=== PATIENT | female | born 1945 | race Caucasian/White ===

== ENCOUNTER 2020-01-09 12:54 | Outpatient (CLI) | payer MEDICARE, SELFPAY ==
--- NOTE | 2020-01-09 13:53 | PFTS_ITS ---
Date of Study:01/09/20 Date of Dictation: MECHANICS: Forced vital capacity (FVC) is normal. Forced expiratory volume in one second (FEV1) is normal. FEV1/FVC is normal. FLOW VOLUME LOOP: Normal. LUNG VOLUMES: Total lung capacity (TLC) is normal. Residual volume (RV) is normal. DIFFUSING CAPACITY FOR CARBON MONOXIDE: Normal. INTERPRETATION: The pulmonary function tests are normal. There is no significant postbronchodilator response. Lung volumes are normal. Gas exchange (DLCO) is normal. MTDD
--- NOTE | 2020-01-09 14:43 | PFTS_ITS ---
Date of Study:01/09/20 Date of Dictation: MECHANICS: Forced vital capacity (FVC) is . Forced expiratory volume in one second (FEV1) is . FEV1/FVC is . FLOW VOLUME LOOP: . LUNG VOLUMES: Total lung capacity (TLC) is . Residual volume (RV) is . DIFFUSING CAPACITY FOR CARBON MONOXIDE: . INTERPRETATION: The pulmonary function tests are . mechanics and lung volumes. Gas exchange (DLCO) is . MTDD
== END 2020-01-09 12:55 | disposition home or self-care (01) ==
LOC: RT 13:04
PROVIDERS: PCP Family Medicine; Visit Provider Family Medicine
DX: R06.02 Shortness of breath (principal)
CPT/HCPCS: 94060; 94726; 94729; J7611

== ENCOUNTER 2020-12-01 08:11 | Outpatient (CLI) | payer MEDICARE, SELFPAY ==
--- NOTE | 2020-12-01 08:18 | MM_ITS ---
WS: [id number] BILATERAL SCREENING DIGITAL MAMMOGRAM WITH CAD HISTORY: SCREENING COMPARISON: 06/06/2019 and 05/31/2018 Bilateral CC and MLO views submitted. Computer aided detection analyzed. Breast composition: There are scattered areas of fibroglandular density. No suspicious masses, microc alcifications or architectural distortion. MM/[id number] IMPRESSION: BI-RADS: 1-Negative FOLLOW UP: 1 Year Follow-up
== END 2020-12-01 08:12 | disposition home or self-care (01) ==
LOC: RADSHAW 08:16
PROVIDERS: PCP Family Medicine; Visit Provider Family Medicine
DX: Z12.31 Encounter for screening mammogram for malignant neoplasm of breast (principal)
CPT/HCPCS: 77067

== ENCOUNTER 2021-11-09 12:27 | Outpatient (CLI) | payer MEDICARE, SELFPAY ==
--- NOTE | 2021-11-09 12:35 | XR_ITS ---
WS: [id number] DEXA (DUAL ENERGY X-RAY ABSORPTIOMETRY) Bone mineral density was performed using a [employer] machine. HISTORY: POST MENOPAUSAL COMPARISON: 10/11/2018 Lumbar spine BMD (L1-L4): 0.963 g/cm2 T score: -1.8 Z score: 0.4 Total hip BMD: Left: 0.838 g/cm2. T score: -1.3 Z score: 0.7 Right: 0.726 g/cm2. T score: -2.2 Z score: -0.2 10 year probability of a major osteoporotic fracture is 24%. Compared to the prior study from 10/11/2018. Lumbar spine bone mineral density has increased by 1.2%. Bilateral hips bone mineral density has decreased by 10.3%. XR/XR DEXA axial skeleton* [id number] IMPRESSION: OSTEOPENIA based upon the WHO classification for females. There has been a sign ificant decrease in bone mineral density within the hips since the prior study.
== END 2021-11-09 12:28 | disposition home or self-care (01) ==
LOC: RAD 12:31
PROVIDERS: PCP Family Medicine; Visit Provider Family Medicine
DX: Z78.0 Asymptomatic menopausal state (principal); M85.80 Other specified disorders of bone density and structure, unspecified site
CPT/HCPCS: 77080

== ENCOUNTER 2022-06-17 08:21 | Outpatient (CLI) | payer MEDICARE, SELFPAY ==
--- NOTE | 2022-06-17 08:30 | MM_ITS ---
WS: [id number] Bilateral screening 3D tomosynthesis digital mammogram, 06/17/2022 Clinical Data: SCREENING Comparison: 12/01/2020, 06/06/2019, 05/31/2018, 11/03/2016, 07/20/2015, 09/23/2013, 09/28/2011, 07/19/2010, 09/08/2008, 01/29/2007. Findings: The breast parenchymal pattern shows fibroglandular tissue. No spiculated masses or clustered calcifi cations are seen. There are no secondary signs of carcinoma. There is a mole marker on the left breas t. MM/[place] [id number] Impression: 1. Negative bilateral mammogram unchanged. 2. Recommend annual screening mammograms. BIRADS: 1-Negative FOLLOW UP: 1 Year Follow-up The CAD rechecker was used.
== END 2022-06-17 08:22 | disposition home or self-care (01) ==
LOC: RAD 08:22
PROVIDERS: PCP Family Medicine; Visit Provider Family Medicine
DX: Z12.31 Encounter for screening mammogram for malignant neoplasm of breast (principal)
CPT/HCPCS: 77063; 77067

== ENCOUNTER 2023-04-23 09:28 | Emergency (ER) | payer MEDICARE, SELFPAY ==
[2023-04-23 09:34] VITALS: BP 167/71; PULSE 95; RESP 15; TEMP 37.1; O2SAT 97
--- NOTE | 2023-04-23 10:00 | CTR_ITS ---
PROCEDURE INFORMATION: Exam: CT Head Without Contrast Exam date and time: 04/23/2023 11:01 AM Age: 77 years old Clinical indication: Altered mental status/memory loss; Confusion or disorientation; Additional info: AMS TECHNIQUE: Imaging protocol: Computed tomography of the head without contrast. Radiation optimization: All CT scans at this facility use at least one of these dose optimization techniques: automated exposure control; mA and/or kV adjustment per patient size (includes targeted exams where dose is matched to clinical indication); or iterative reconstruction. REPORTING DATA: Count of CT and Cardiac NM exams in prior 12 months: This patient has received 0 known CTs and 0 known cardiac nuclear medicine studies in the 12 months prior to the current study. COMPARISON: No relevant prior studies available. RADIATION DOSE METRICS: Total DLP (mGy-cm): 983.68 FINDINGS: Brain: Normal. No hemorrhage. Unremarkable white matter. No mass effect. Cerebral ventricles: No ventriculomegaly. Paranasal sinuses: Visualized sinuses are unremarkable. No fluid levels. Mastoid air cells: Visualized mastoid air cells are well aerated. Bones/joints: Unremarkable. No acute fracture. Soft tissues: Unremarkable. CT/CT head wo con* [id number] IMPRESSION: No acute intracranial abnormality.
--- NOTE | 2023-04-23 10:00 | XRR_ITS ---
PROCEDURE INFORMATION: Exam: XR Chest Exam date and time: 04/23/2023 10:51 AM Age: 77 years old Clinical indication: Dyspnea; Additional info: AMS TECHNIQUE: Imaging protocol: Radiologic exam of the chest. Views: 1 view. COMPARISON: No relevant prior studies available. FINDINGS: Lungs: Unremarkable. No consolidation. Pleural spaces: Unremarkable. No pleural effusion. No pneumothorax. Heart/Mediastinum: Unremarkable. No cardiomegaly. Bones/joints: Unremarkable. XR/XR chest 1V portable [id number] IMPRESSION: No acute findings.
--- NOTE | 2023-04-23 10:00 | W.ED.AMS ---
HPI - Altered Mental Status General: Chief Complaint: Altered Mental Status Stated Complaint: confusion Time Seen by Provider: 04/23/23 09:30 History of Present Illness: Yari is a 77-year-old female that presents to the emergency department with her . She lives and denies any complaints. Patient's states this has been building for about a month. She has history of bipolar disorder that she takes doxepin and Lexapro for. Patient has been intermittently taking them for the last month but believes that she is no longer taking any of her medications. Her other medications include levothyroxine, calcium, B complex and vitamin E. In the emergency department the patient is oriented to herself, day and year, and her situation although it is difficult to have a conversation with her. She has tangent of thoughts She is calm and cooperative. She becomes tearful during our conversation on 2 occasions. Based on her medication list she has discontinued use of doxepin, Lexapro, levothyroxine as well as multivitamins and vaginal estrogen. She has no history of stroke, VTE, AMI, high blood pressure, hyperlipidemia Review of Systems General: Reports: 10 or more systems reviewed and unremarkable except in HPI and below Const: Denies: fever(s), chills, change in appetite, change in weight, fatigue or malaise Eyes: Denies: change in vision, eye discomfort, eye discharge or eye redness ENMT: Denies: throat pain, enlarged tonsils, odynophagia, hoarseness, ear or mastoid pain, ear discharge, change in hearing, tinnitus, nasal discharge, nasal congestion, post nasal drip or sinus pain Card: Denies: chest pain, palpitations, irregular heart rhythm, edema, dyspnea on exertion, orthopnea or leg pain with exertion Resp: Denies: dyspnea, productive cough, non-productive cough, wheezing, stridor or chest congestion GI: Denies: abdominal pain, nausea, vomiting, dysphagia, diarrhea, constipation, bloating, GI cramping or hematochezia : Denies: flank pain, difficulty voiding, dysuria, urinary frequency, urinary urgency, urinary hesitancy, oliguria or hematuria Musc: Denies: neck pain, back pain, extremity pain, joint pain, joint swelling, joint redness, joint warmth or muscle weakness Skin/Breast: Denies: rash, pruritus, erythema, photosensitivity or new lesions Neuro: Reports: behavioral changes and difficulty communicating thoughts; Denies: headache(s), numbness in extremities, weakness in extremities, sensory changes, lack of coordination, difficulty walking, frequent falls, dizziness, confusion, Slurred speech present, seizure-like activity or involuntary movements Psych: Reports: mood swings, sleeping less, change in appetite and difficulty concentrating Endo: Denies: polyuria, polydipsia or tired all the time Micah/Lymph: Denies: easy bruising or easy bleeding PFS ED PFSH: Medical History (Updated 04/23/23 @ 12:45 by MALIK Garrido) Hypothyroidism Diagnosed in her 30s and symptoms are well controlled with medication managed by her primary care provider. She does not have an workers' compensation mediator. No pertinent past medical history Denies history of: diabetes, heart, liver, lung, kidney problems, DVT/PE, bleeding or clotting disorders. PCP: Dr. Renu Martines Surgical History History of left salpingo-oophorectomy Laparoscopic left salpingo-oophorectomy done in 1999 for a cyst. This was done in [place]. Patient was told that there was no malignancy. S/P tonsillectomy as a child Family History Grandmother Heart disease maternal Mother Hyperlipidemia Brother Hyperlipidemia Grandfather Stroke paternal Sister Thyroid condition x 2 Denies family history of Cervical cancer Colon cancer Ovarian cancer Diabetes DVT (deep venous thrombosis) Breast cancer Pulmonary embolism Hypertension Uterine cancer Physical Exam Const: COMMON NORMALS: no acute distress, average body habitus, patient oriented x3 and healthy appearing EXAM LIMITATIONS: altered mental status and behavioral limitations GENERAL APPEARANCE: cooperative, comfortable and well kempt; not ill appearing and not frail appearing ORIENTATION/CONSCIOUSNESS: Yes awake, Yes oriented to person, Yes oriented to place, Yes oriented to time and Yes Other orientation findings (Tangential thoughts and speech) HENMT: COMMON NORMALS: normocephalic, atraumatic, hearing grossly normal bilaterally and moist oral mucous membranes HEAD & SCALP: normocephalic and atraumatic Eye: COMMON NORMALS: Equal, round and reactive pupils present and EOMs intact bilaterally PUPIL: Yes Equal, round and reactive pupils present Neck/C-Spine: COMMON NORMALS: full ROM, no meningeal signs and no JVD Resp: COMMON NORMALS: normal respiratory effort, No use of accessory muscles and clear to auscultation bilaterally AUSCULTATION: clear to auscultation bilaterally Cardio: COMMON NORMALS: no JVD, regular rate and regular rhythm RATE: regular rate RHYTHM: regular rhythm GI: COMMON NORMALS: Normal to inspection, nondistended, normoactive bowel sounds present Neuro: COMMON NORMALS: patient oriented x3 SENSORIUM/ORIENTATION: Yes oriented to person, Yes oriented to place and Yes oriented to time MENINGEAL SIGNS: Yes no meningeal signs CRANIAL NERVES: Yes CN normal except as noted COORDINATION/BALANCE: [id number]-[id number] test normal and sfuk-[id number] test normal GAIT: Yes Normal gait present COORDINATION: [id number]-[id number] test normal and tjag-ob-ulys test normal Psych: APPEARANCE: Yes grossly normal and Yes well kempt ATTITUDE: Yes calm and Yes engaged ACTIVITY/MOTOR BEHAVIOR: Yes appropriate eye contact, Yes disorganized behavior and Yes mannerisms SPEECH: Yes excessive and Yes Other speech symptoms (Tangential speech) Course Vital Signs: Vital signs: Vital Signs Temperature 98.8 F 04/23/23 09:34 Pulse Rate 95 04/23/23 09:34 Respiratory Rate 15 04/23/23 09:34 Blood Pressure 167/71 04/23/23 09:34 Pulse Oximetry 97 04/23/23 09:34 Oxygen Delivery Me thod Room Air 04/23/23 09:34 MDM - Altered Mental Status Medical Decision Making Patient is a 77-year-old female that presents with her . They have concerns of altered mentation due to discontinuation of her antidepressants. Patient arrives with tangential thought processes but is pleasant and redirectable. Patient states she has been taking her medications but states he knows that she is not. He is not acutely confused and easily gets off topic. She is alert to herself, her birthday, the date and year, location and why she is here. Differential diagnosis includes stroke, infection, toxin, electrolyte abnormality, renal failure, liver failure, and UTI. I did obtain laboratory studies to assess TSH, CBC, CMP, urinalysis, and tox screen. No acute abnormalities were identified. CT of the head was unremarkable EKG reveals sinus rhythm with a ventricular rate of 74 beats a minute and a QTc of 438. Chest x-ray unremarkable. I did speak with my attending dr godinez and reviewed findings. Since the patient is not a risk to herself or others and is willing to be compliant with managing her medications, we gave them the option to be admitted or discharged home. After a lengthy discussion between patient and her spouse, they did have questions regarding length of hospitalization and what could be expected. Unfortunately we do not have those answers. Ultimately, they have elected to discharge home. Yari has follow-up with Dr. Sears in the morning and they plan on keeping that appointment to discuss further At this time no further diagnostics are warranted Patient will discharge home and will follow up with PCP as planned. All questions answered. Lab Data 04/23/23 09:42 04/23/23 09:42 Radiology Impressions Chest X-Ray 04/23/23 10:00 IMPRESSION: No acute findings. Head CT 04/23/23 10:00 IMPRESSION: No acute intracranial abnormality. Laboratory Results WBC 5.31 10^3/uL (3.29-11.43) 04/23/23 09:42 RBC 4.04 10^6/uL (3.85-5.65) 04/23/23 09:42 Hgb 12.80 g/dL (11.27-16.99) 04/23/23 09:42 Hct 37.6 % (36-47) 04/23/23 09:42 MCV 93.1 fl (85-98) 04/23/23 09:42 MCH 31.7 pg (27-33) 04/23/23 09:42 MCHC 34.0 g/dL (30-55) 04/23/23 09:42 RDW 12.0 % (12.1-15.1) L 04/23/23 09:42 Plt Count 289 10^3/cmm (157-399) 04/23/23 09:42 MPV 9.7 fL (7.4-10.4) 04/23/23 09:42 Neut % (Auto) 57.1 % 04/23/23 09:42 Lymph % (Auto) 29.2 % 04/23/23 09:42 [place] % (Auto) 8.3 % 04/23/23 09:42 Eos % (Auto) 4.3 % 04/23/23 09:42 Baso % (Auto) 0.9 % 04/23/23 09:42 Neut # (Auto) 3.03 10^3/uL (1.8-7.7) 04/23/23 09:42 Lymph # (Auto) 1.6 10^3/uL (0.8-4.8) 04/23/23 09:42 [place] # (Auto) 0.4 10^3/uL (0.2-0.9) 04/23/23 09:42 Eos # (Auto) 0.2 10^3/uL (0.0-0.8) 04/23/23 09:42 Baso # (Auto) 0.1 10^3/uL (0.0-0.1) 04/23/23 09:42 Nucleated RBC % (auto) 0 % 04/23/23 09:42 Nucleated RBCs # 0.0 /100WBC 04/23/23 09:42 Sodium 134 mmol/L (136-145) L 04/23/23 09:42 Potassium 3.9 mmol/L (3.5-5.1) 04/23/23 09:42 Chloride 97 mmol/L (98-107) L 04/23/23 09:42 Carbon Dioxide 23 mmol/L (22-29) 04/23/23 09:42 Anion Gap 17.9 (5-19) 04/23/23 09:42 BUN 9 mg/dL (8-23) 04/23/23 09:42 Creatinine 0.8 mg/dL (0.5-0.9) 04/23/23 09:42 GFR Calculation Not Reportable 04/23/23 09:42 Glucose 164 mg/dL (65-115) H 04/23/23 09:42 Calculated Osmolality 280 mOsm/kg (285-295) L 04/23/23 09:42 Calcium 9.3 mg/dL (8.5-10.5) 04/23/23 09:42 Total Bilirubin 0.4 mg/dL (0.15-1.2) 04/23/23 09:42 AST 28 U/L (0-32) 04/23/23 09:42 ALT 18 U/L (0-33) 04/23/23 09:42 Alkaline Phosphatase 101 U/L (35-105) 09/10/23 09:42 Troponin T Gen 5 ng/L 9 ng/L (0-10) 04/23/23 09:42 Total Protein 7.6 g/dL (6.6-8.7) 04/23/23 09:42 Albumin 5.3 g/dL (3.5-5.2) H 04/23/23 09:42 Globulin 2.3 g/dL (1.3-4.6) 04/23/23 09:42 TSH 3.09 uIU/mL (0.27-4.20) 04/23/23 09:42 Urine Color Straw (Yellow) 04/23/23 10:27 Urine Appearance Clear (CLEAR) 04/23/23 10:27 Urine pH 8 (5-7) H 04/23/23 10:27 Ur Specific [place] 1.010 (1.005-1.030) 04/23/23 10:27 Urine Protein Neg (Negative) 04/23/23 10:27 Urine Glucose (UA) Norm (Normal) 04/23/23 10:27 Urine Ketones Negative (Negative) 04/23/23 10:27 Urine Blood Neg (Negative) 04/23/23 10:27 Urine Nitrate Negative (Negative) 04/23/23 10:27 Urine Bilirubin Neg (Negative) 04/23/23 10:27 Prot Sulfosalicylic Acd Negative (Negative) 04/23/23 10:27 Urine Urobilinogen Norm mg/dL (Negative) 04/23/23 10:27 Ur Leukocyte Esterase Negative (Negative) 04/23/23 10:27 Salicylates < 0.3 mg/dL (3-10) L 04/23/23 09:42 Urine Opiates Screen Negative ng/mL (Negative) 04/23/23 10:27 Acetaminophen < 5.0 ug/mL (10-30) L 04/23/23 09:42 Ur Barbiturates Screen Negative ng/mL (Negative) 04/23/23 10:27 Ur Phencyclidine Scrn Negative ng/mL (Negative) 04/23/23 10:27 Ur Amphetamines Screen Negative ng/mL (Negative) 04/23/23 10:27 U Benzodiazepines Scrn Negative ng/mL (Negative) 04/23/23 10:27 Urine Cocaine Screen Negative ng/mL (Negative) 04/23/23 10:27 U Marijuana (THC) Screen Negative ng/mL (Negative) 04/23/23 10:27 Ethyl Alcohol < 10 mg/dL (0-10) 04/23/23 09:42 Discharge Plan Discharge Patient Disposition: Home Clinical Impression: Bipolar 1 disorder, manic, mild Condition: Stable Prescriptions: No Action levothyroxine [Synthroid] 50 mcg tablet 50 mcg PO DAILY Complete Multivitamin Tablet 1 tab PO DAILY vitamin E (dl, acetate) 400 unit PO DAILY glucosamine-chondroitin 900 mg tablet 900 mg PO DAILY B-complex with vitamin C Tablet 1 tab PO DAILY doxepin 6 mg PO BEDTIME escitalopram oxalate 10 mg PO DAILY calcium carbonate [Calcium 600] 600 mg calcium (1,500 mg) tablet 300 mg PO BID estradiol 0.01 % (0.1 mg/gram) cream 1 g vaginal .twice weekly Discharge Orders: Discharge ED (Routine); Ordered 04/23/23 Ordered By: Herber Mcmahon Referrals: Lou Sears MD [Primary Care Provider] - Discharge Diet: Advance as tolerated Discharge Activity: Resume usual activity Patient Instructions: Bipolar Disorder (ED), Pain Management Activity Restrictions/Additional Instructions: Please keep your follow-up appointment with Dr. Sears You have agreed for your to manage her medications. Please take all medications as prescribed Please return to the emergency department for new concerning or worsening symptoms Coding Level of Care Code ED Transmitter Supervisor for Sarah Thompson
--- NOTE | 2023-04-23 10:02 | ECG_ITS ---
[facility] Test Date: 2023-04-23 Pat Name: Yari Hager Department: Room: Gender: Female Press Box Custodian: : 1945 Requested By: Herber cMdonald Order Number: [id number] Reading MD: Jeremy Jamil M.D. Measurements Intervals [place] Rate: 74 P: 62 LA: 191 QRS: -44 QRSD: 87 T: 58 QT: 411 QTc: 456 Interpretive Statements SINUS RHYTHM LEFT AXIS DEVIATION [QRS AXIS < -30] No previous ECG available for comparison Electronically Signed On 04-23-2023 10:55:34 CDT by Jeremy Jamil M.D. [email or web address]
[2023-04-23] MEDS: sodium chloride 0.9% 500 ML IV (10:08)
[2023-04-23 10:16] LABS: Basophils # 0.1 10^3/uL (0.0-0.1); Basophils % 0.9 %; Eosinophils # 0.2 10^3/uL (0.0-0.8); Eosinophils % 4.3 %; Hematocrit 37.6 % (36-47); Lymphocytes # 1.6 10^3/uL (0.8-4.8); Lymphocytes % 29.2 %; Mean Corpuscular Hemoglobin 31.7 pg (27-33); Mean Corpuscular Volume 93.1 fl (85-98); Mean Platelet Volume 9.7 fL (7.4-10.4); Monocytes # 0.4 10^3/uL (0.2-0.9); Monocytes % 8.3 %; Neutrophils # 3.03 10^3/uL (1.8-7.7); Neutrophils % 57.1 %; Nucleated Red Blood Cells % 0 %; Platelet Count 289 10^3/cmm (157-399); Red Blood Count 4.04 10^6/uL (3.85-5.65); White Blood Count 5.31 10^3/uL (3.29-11.43)
[2023-04-23 11:00] LABS: Add Urine Microscopic? NO; Charge for UA Resulting for Rev
[2023-04-23 11:02] LABS: Troponin T (5th) Once 9 ng/L (0-10)
[2023-04-23 11:07] LABS: Bilirubin Urine Neg (Negative); Blood Urine Neg (Negative); Glucose Urine UA Norm (Normal); Ketones Urine Negative (Negative); Leukocyte Esterase Urine Negative (Negative); Nitrate Urine Negative (Negative); Protein Urine Neg (Negative); Sulfosalicylic Acid Urine Negative (Negative); Urine Appearance Clear (CLEAR); Urine Color Straw (Yellow); Urobilinogen Urine Norm (Negative); pH Urine 8 (5-7)
[2023-04-23 11:13] LABS: Alanine Aminotransferase 18 U/L (0-33); Albumin Level 5.3 g/dL (3.5-5.2); Alkaline Phosphatase 101 U/L (35-105); Anion Gap 17.9 (5-19); Aspartate Amino Transferase 28 U/L (0-32); Blood Urea Nitrogen 9 mg/dL (8-23); Calcium 9.3 mg/dL (8.5-10.5); Carbon Dioxide 23 mmol/L (22-29); Chloride 97 mmol/L (98-107); Globulin 2.3 g/dL (1.3-4.6); Glucose 164 mg/dL (65-115); Osmolality Calculated 280 mOsm/kg (285-295); Potassium 3.9 mmol/L (3.5-5.1); Sodium 134 mmol/L (136-145); Thyroid Stimulating Hormone 3.09 uIU/mL (0.27-4.20); Total Bilirubin 0.4 mg/dL (0.15-1.2); Total Protein 7.6 g/dL (6.6-8.7)
[2023-04-23 11:15] LABS: Amphetamines Screen Urine Negative (Negative); Barbiturates Screen Urine Negative (Negative); Benzodiazepines Screen Urine Negative (Negative); Cocaine Screen Urine Negative (Negative); Opiate Screen Urine Negative (Negative); PCP Screen Urine Negative (Negative); THC Screen Urine Negative (Negative)
[2023-04-23 11:15] LABS: Acetaminophen < 5.0 ug/mL (10-30); Alcohol Level < 10 mg/dL (0-10); Salicylate < 0.3 mg/dL (3-10)
== END 2023-04-23 13:11 | disposition home or self-care (01) ==
PROVIDERS: Emergency Provider Nurse Practitioner; PCP Family Medicine
DX: F30.11 Manic episode without psychotic symptoms, mild (principal)
CPT/HCPCS: 70450; 71045; 80053; 80306; 80307; 81003; 84443; 84484; 85025; 93005; 96360; 99285; J7040

== ENCOUNTER 2023-04-28 19:23 | Emergency (ER) | payer MEDICARE, SELFPAY ==
[2023-04-28 19:29] VITALS: BP 162/78; PULSE 86; RESP 16; TEMP 36.5; O2SAT 99; BMI 24.0
--- NOTE | 2023-04-28 19:55 | ED.C_ITS ---
HPI - Psych General: Chief Complaint: Psychiatric Symptoms Stated Complaint: mood changes Time Seen by Provider: 04/28/23 19:46 History of Present Illness: 77-year-old female with history of bipolar disorder was brought into the emergency room by because of unstable mood within the past few weeks. Patient was seen and evaluated for similar complaint few days ago but she did not want to be admitted. According to the patient is having abnormal speech and thinking. Patient denies any suicidal homicidal ideation. Patient is currently on bisoprolol and Seroquel but unsure if patient is taking medication as directed. Patient has any hallucination, headache, blurry vision or change in vision. Associated symptoms: Deny auditory hallucinations, homicidal ideation or suicidal ideation Review of Systems General: Reports: 10 or more systems reviewed and unremarkable except in HPI and below Const: Denies: fever(s), chills or body aches Eyes: Denies: change in vision, blurry vision, blind spots, eye discomfort, eye discharge or dry eyes Resp: Denies: dyspnea, wheezing, stridor, pain on inspiration, hemoptysis or chest congestion Skin/Breast: Denies: rash, pruritus or erythema Neuro: Denies: headache(s), numbness in extremities, weakness in extremities, sensory changes, lack of coordination, difficulty walking, frequent falls, dizziness, vertigo or confusion Psych: Reports: anxiety and irritability; Denies: panic attacks, hopelessness, paranoia, difficulty concentrating, auditory hallucinations, tactile hallucinations, suicidal ideation or homicidal ideation Endo: Denies: polyuria, polydipsia, tired all the time, excessive sweating, heat intolerance or deepening of the voice [facility] ED PFSH: Medical History (Updated 04/28/23 @ 22:07 by Vane Win MD) Hypothyroidism Diagnosed in her 30s and symptoms are well controlled with medication managed by her primary care provider. She does not have an logistics associate. No pertinent past medical history Denies history of: diabetes, heart, liver, lung, kidney problems, DVT/PE, bleeding or clotting disorders. PCP: Dr. Sears [facility] Surgical History History of left salpingo-oophorectomy Laparoscopic left salpingo-oophorectomy done in 1999 for a cyst. This was done in [place]. Patient was told that there was no malignancy. S/P tonsillectomy as a child Family History Grandmother Heart disease maternal Mother Hyperlipidemia Brother Hyperlipidemia Grandfather Stroke paternal Sister Thyroid condition x 2 Denies family history of Cervical cancer Colon cancer Ovarian cancer Diabetes DVT (deep venous thrombosis) Breast cancer Pulmonary embolism Hypertension Uterine cancer Physical Exam Const: COMMON NORMALS: no acute distress, average body habitus, patient oriented x3, no limitations, healthy appearing, alert and well nourished GENERAL APPEARANCE: well kempt Neuro: COMMON NORMALS: patient oriented x3 SENSORIUM/ORIENTATION: Yes alert Psych: APPEARANCE: Yes grossly normal and Yes well kempt ATTITUDE: Yes calm, No bizarre, No uncooperative, No Guarded attititude/behavior present, No Belligerent attititude/behavior present, No agitated, No aggressive and No hostile ACTIVITY/MOTOR BEHAVIOR: Yes appropriate eye contact SPEECH: No delayed, No Pressured speech present and No slurred MOOD & AFFECT: Yes Flat affect present THOUGHT PROCESS: Loose association thought process present and Tangential thought process present THOUGHT CONTENT: No Suicidality present, No Homicidality present, No Hallucination(s) present, Yes Derealization present and No Obsession(s) present ATTENTION/CONCENTRATION: Yes attention grossly in tact MEMORY/COGNITION: Yes memory grossly intact INSIGHT: Fair insight present (Psych) Course Vital Signs: Vital signs: Vital Signs Temperature 97.7 F 04/28/23 19:29 Pulse Rate 85 04/29/23 02:35 Respiratory Rate 16 04/29/23 02:35 Blood Pressure 133/72 04/29/23 02:35 Pulse Oximetry 95 04/29/23 02:35 Oxygen Delivery Me thod Room Air 04/29/23 02:35 MDM - Psych Medical Decision Making Patient made comfortable emergency room. Patient extensive work-up done including CBC, CMP, TSH and a UA. UDS. Discussed patient with Dr. Sellers the psychiatrist and [facility]. Discussed the plan and disposition with and he agreed to current plan. Lab Data 04/28/23 20:09 04/28/23 20:09 Laboratory Results WBC 4.86 10^3/uL (3.29-11.43) 04/28/23 20:09 RBC 3.73 10^6/uL (3.85-5.65) L 04/28/23 20:09 Hgb 11.50 g/dL (11.27-16.99) 04/28/23 20:09 Hct 35.0 % (36-47) L 04/28/23 20:09 MCV 93.8 fl (85-98) 04/28/23 20:09 MCH 30.8 pg (27-33) 04/28/23 20: MCHC 32.9 g/dL (30-55) 04/28/23 20:09 RDW 12.0 % (12.1-15.1) L 04/28/23 20:09 Plt Count 252 10^3/cmm (157-399) 04/28/23 20:09 MPV 9.3 fL (7.4-10.4) 04/28/23 20:09 Neut % (Auto) 53.8 % 04/28/23 20:09 Lymph % (Auto) 31.9 % 04/28/23 20:09 [place] % (Auto) 8.8 % 04/28/23 20:09 Eos % (Auto) 4.5 % 04/28/23 20:09 Baso % (Auto) 0.8 % 04/28/23 20:09 Neut # (Auto) 2.61 10^3/uL (1.8-7.7) 04/28/23 20:09 Lymph # (Auto) 1.6 10^3/uL (0.8-4.8) 04/28/23 20:09 [place] # (Auto) 0.4 10^3/uL (0.2-0.9) 04/28/23 20:09 Eos # (Auto) 0.2 10^3/uL (0.0-0.8) 04/28/23 20:09 Baso # (Auto) 0.0 10^3/uL (0.0-0.1) 04/28/23 20:09 Nucleated RBC % (auto) 0 % 04/28/23 20:09 Nucleated RBCs # 0.0 /100WBC 04/28/23 20:09 Sodium 136 mmol/L (136-145) 04/28/23 20:09 Potassium 3.3 mmol/L (3.5-5.1) L 04/28/23 20:09 Chloride 100 mmol/L (98-107) 04/28/23 20:09 Carbon Dioxide 26 mmol/L (22-29) 04/28/23 20:09 Anion Gap 13.3 (5-19) 04/28/23 20:09 BUN 11 mg/dL (8-23) 04/28/23 20:09 Creatinine 0.7 mg/dL (0.5-0.9) 04/28/23 20:09 GFR Calculation Not Reportable 04/28/23 20:09 Glucose 96 mg/dL (65-115) 04/28/23 20:09 Calculated Osmolality 281 mOsm/kg (285-295) L 04/28/23 20:09 Calcium 9.0 mg/dL (8.5-10.5) 04/28/23 20:09 Total Bilirubin 0.2 mg/dL (0.15-1.2) 04/28/23 20:09 AST 21 U/L (0-32) 04/28/23 20:09 ALT 15 U/L (0-33) 04/28/23 20:09 Alkaline Phosphatase 96 U/L (35-105) 04/28/23 20:09 Total Protein 7.2 g/dL (6.6-8.7) 04/28/23 20:09 Albumin 4.6 g/dL (3.5-5.2) 04/28/23 20:09 Globulin 2.6 g/dL (1.3-4.6) 04/28/23 20:09 TSH 4.16 uIU/mL (0.27-4.20) 04/28/23 20:09 Urine Color Yellow (Yellow) 04/28/23 20:50 Urine Appearance Clear (CLEAR) 04/28/23 20:50 Urine pH 7 (5-7) 04/28/23 20:50 Ur Specific [place] 1.005 (1.005-1.030) 04/28/23 20:50 Urine Protein Neg (Negative) 04/28/23 20:50 Urine Glucose (UA) Norm (Normal) 04/28/23 20:50 Urine Ketones Negative (Negative) 04/28/23 20:50 Urine Blood Neg (Negative) 04/28/23 20:50 Urine Nitrate Negative (Negative) 04/28/23 20:50 Urine Bilirubin Neg (Negative) 04/28/23 20:50 Urine Urobilinogen Norm mg/dL (Negative) 04/28/23 20:50 Ur Leukocyte Esterase Negative (Negative) 04/28/23 20:50 Urine Opiates Screen Negative ng/mL (Negative) 04/28/23 20:50 Ur Barbiturates Screen Negative ng/mL (Negative) 04/28/23 20:50 Ur Phencyclidine Scrn Negative ng/mL (Negative) 04/28/23 20:50 Ur Amphetamines Screen Negative ng/mL (Negative) 04/28/23 20:50 U Benzodiazepines Scrn Negative ng/mL (Negative) 04/28/23 20:50 Urine Cocaine Screen Negative ng/mL (Negative) 04/28/23 20:50 U Marijuana (THC) Screen Negative ng/mL (Negative) 04/28/23 20:50 Coronavirus 229E (PCR) Not detected (NOT DETECT) 04/29/23 01:10 SARS-CoV-2 (PCR) Not detected (NOT DETECT) 04/29/23 01:10 No radiology studies performed this visit Discharge Plan Discharge Patient Disposition: Xfer Psychiatric Hosp Clinical Impression: Bipolar 1 disorder, manic, mild, Mood disorder Condition: Stable Referrals: Lou Sears MD [Primary Care Provider] - Coding Level of Care Code ED [place] Supervisor for Sarah Thompson
[2023-04-28 20:36] LABS: Basophils % 0.8 %; Eosinophils # 0.2 10^3/uL (0.0-0.8); Eosinophils % 4.5 %; Lymphocytes # 1.6 10^3/uL (0.8-4.8); Lymphocytes % 31.9 %; Mean Corpuscular HGB Conc 32.9 g/dL (30-55); Mean Corpuscular Hemoglobin 30.8 pg (27-33); Mean Corpuscular Volume 93.8 fl (85-98); Mean Platelet Volume 9.3 fL (7.4-10.4); Monocytes # 0.4 10^3/uL (0.2-0.9); Monocytes % 8.8 %; Neutrophils # 2.61 10^3/uL (1.8-7.7); Neutrophils % 53.8 %; Nucleated Red Blood Cells % 0 %; Platelet Count 252 10^3/cmm (157-399); Red Blood Count 3.73 10^6/uL (3.85-5.65); White Blood Count 4.86 10^3/uL (3.29-11.43)
[2023-04-28 21:04] LABS: Add Urine Microscopic? NO; Charge for UA Resulting for Rev
[2023-04-28 21:11] LABS: Bilirubin Urine Neg (Negative); Blood Urine Neg (Negative); Glucose Urine UA Norm (Normal); Ketones Urine Negative (Negative); Leukocyte Esterase Urine Negative (Negative); Nitrate Urine Negative (Negative); Protein Urine Neg (Negative); Specific Gravity, Urine 1.005 (1.005-1.030); Urine Appearance Clear (CLEAR); Urine Color Yellow (Yellow); Urobilinogen Urine Norm (Negative); pH Urine 7 (5-7)
[2023-04-28 21:12] LABS: Alanine Aminotransferase 15 U/L (0-33); Albumin Level 4.6 g/dL (3.5-5.2); Alkaline Phosphatase 96 U/L (35-105); Anion Gap 13.3 (5-19); Aspartate Amino Transferase 21 U/L (0-32); Blood Urea Nitrogen 11 mg/dL (8-23); Carbon Dioxide 26 mmol/L (22-29); Chloride 100 mmol/L (98-107); Globulin 2.6 g/dL (1.3-4.6); Glucose 96 mg/dL (65-115); Osmolality Calculated 281 mOsm/kg (285-295); Potassium 3.3 mmol/L (3.5-5.1); Sodium 136 mmol/L (136-145); Thyroid Stimulating Hormone 4.16 uIU/mL (0.27-4.20); Total Bilirubin 0.2 mg/dL (0.15-1.2); Total Protein 7.2 g/dL (6.6-8.7)
[2023-04-28 21:16] LABS: Amphetamines Screen Urine Negative (Negative); Barbiturates Screen Urine Negative (Negative); Benzodiazepines Screen Urine Negative (Negative); Cocaine Screen Urine Negative (Negative); Opiate Screen Urine Negative (Negative); PCP Screen Urine Negative (Negative); THC Screen Urine Negative (Negative)
--- NOTE | 2023-04-28 21:57 | DCPLANNER ---
PATIENT INFORMATION HAS BEEN SENT TO [facility] AT [id number]. PATIENT INFORMATION HAS BEEN SENT TO [facility] AT 4767.
[2023-04-28] MEDS: blistex lip oint 7 gm Tube 1 APPLIC TOPICAL (23:31)
[2023-04-29] MEDS: OLANZapine 10 mg ODT 15 MG PO (00:52)
[2023-04-29 00:54] VITALS: RESP 16
--- NOTE | 2023-04-29 01:43 | PC.NURSE ---
Pt given 15mg Zyprexa PO. Nurse watched pt place medication into her mouth acting like she was taking it. Pt was demanding coffee when the nurse stepped out of the room to make coffee; the pt then spit the medication back into the medication cup. When nurse returned and noticed the medication back in the medication cup the pt tried to make a deal about taking the medication again. Nurse had to ask for a second nurse to come assist with getting the pt to take medication. Pt took 10mg and crushed the 5mg up on her blankets.
[2023-04-29 02:35] VITALS: BP 133/72; PULSE 85; RESP 16; O2SAT 95
[2023-04-29 03:26] LABS: Adenovirus Not Detected (NOT DETECT); Chlamydia Pneumoniae Not Detected (NOT DETECT); Coronavirus 229E,HKU1,NL63,OC4 Not Detected (NOT DETECT); Human Metapneumovirus Not Detected (NOT DETECT); Human Rhinovirus/Enterovirus Not Detected (NOT DETECT); Influenza A Not Detected (NOT DETECT); Influenza A H1 Not Detected (NOT DETECT); Influenza A H1-2009 Not Detected (NOT DETECT); Influenza A H3 Not Detected (NOT DETECT); Influenza B Not Detected (NOT DETECT); Mycoplasma Pneumoniae Not Detected (NOT DETECT); Parainfluenza Virus Type 1 Not Detected (NOT DETECT); Parainfluenza Virus Type 2 Not Detected (NOT DETECT); Parainfluenza Virus Type 3 Not Detected (NOT DETECT); Parainfluenza Virus Type 4 Not Detected (NOT DETECT); Respiratory Syncytial Virus A Not Detected (NOT DETECT); Respiratory Syncytial Virus B Not Detected (NOT DETECT); SARS-COV-2 Not Detected (NOT DETECT)
== END 2023-04-29 08:26 ==
PROVIDERS: Emergency Medicine; Emergency Provider Family Medicine; PCP Family Medicine
DX: F31.9 Bipolar disorder, unspecified (principal); Z20.822 Contact with and (suspected) exposure to COVID-19
CPT/HCPCS: 80053; 80306; 81003; 84443; 85025; 87635; 99283

== ENCOUNTER → 2023-05-15 13:08 | Outpatient (BNVA) | payer MEDICARE, SELFPAY | PROVIDERS: PCP Family Medicine; Visit Provider Nurse Practitioner Family | DX: D22.5 Melanocytic nevi of trunk (principal); L57.8 Other skin changes due to chronic exposure to nonionizing radiation; L82.1 Other seborrheic keratosis; L81.4 Other melanin hyperpigmentation; I83.93 Asymptomatic varicose veins of bilateral lower extremities; B07.0 Plantar wart; R20.9 Unspecified disturbances of skin sensation; R20.8 Other disturbances of skin sensation; R23.8 Other skin changes; L29.8 Other pruritus; L53.8 Other specified erythematous conditions; Z78.9 Other specified health status | CPT/HCPCS: 17110; 99213 ==

== ENCOUNTER 2023-06-20 07:47 | Outpatient (CLI) | payer MEDICARE, SELFPAY ==
--- NOTE | 2023-06-20 08:21 | MM_ITS ---
WS: [id number] BILATERAL 3D TOMOSYNTHESIS DIGITAL SCREENING MAMMOGRAPHY WITH CAD CLINICAL INFORMATION: Z12.31 - Encounter for screening mammogram for malignant ... HISTORY: Screening mammogram. No current complaints. COMPARISON: 2021 TECHNIQUE: Bilateral CC and MLO views. FINDINGS: Scattered fibroglandular densities bilaterally. No suspicious focal mass, asymmetry, calcifications, or architectural distortion. No evidence of malignancy. A few incidental punctate calcifications. IMPRESSION: MM/[place] [id number] BI-RADS: 2-Benign FOLLOW UP: 1 Year Follow-up Recommend return to annual screening mammography.
== END 2023-06-20 07:48 | disposition home or self-care (01) ==
LOC: RAD 07:47
PROVIDERS: PCP Family Medicine; Visit Provider Nurse Practitioner Women's Health
DX: Z12.31 Encounter for screening mammogram for malignant neoplasm of breast (principal); L84 Corns and callosities; M19.072 Primary osteoarthritis, left ankle and foot
CPT/HCPCS: 77063; 77067; 99203

== ENCOUNTER → 2024-05-23 07:57 | Outpatient (BNVA) | payer MEDICARE, SELFPAY | PROVIDERS: PCP Family Medicine; Visit Provider Nurse Practitioner Family | DX: L57.8 Other skin changes due to chronic exposure to nonionizing radiation (principal); D22.5 Melanocytic nevi of trunk; L82.1 Other seborrheic keratosis; L81.4 Other melanin hyperpigmentation; I83.93 Asymptomatic varicose veins of bilateral lower extremities | CPT/HCPCS: 11102; 99213 ==

== ENCOUNTER 2024-06-26 13:04 | Outpatient (CLI) | payer MEDICARE, SELFPAY ==
--- NOTE | 2024-06-26 13:00 | XR_ITS ---
WS: [id number] DEXA (DUAL ENERGY X-RAY ABSORPTIOMETRY) Bone mineral density was performed using a [employer] machine. HISTORY: Z78.0 - Asymptomatic menopausal state COMPARISON: 11/09/2021 Lumbar spine BMD (L1-L4): 1.014 g/cm2 T score: -1.4 Z score: 0.6 Total hip BMD: Left: 0.886 g/cm2. T score: -1.0 Z score: 1.0 Right: 0.890 g/cm2. T score: -0.9 Z score: 1.1 10 year probability of a major osteoporotic fracture is 16.2%. Compared to the prior study from 11/09/2021. Lumbar spine bone mineral density has increased by 5.3%. Bilateral hips bone mineral density has increased by 13.6%. XR/XR DEXA axial skeleton* [id number] IMPRESSION: OSTEOPENIA based upon the WHO classification for females. Significant increase in bone mineral density within the lumbar spine and hips s carrol the prior study.
--- NOTE | 2024-06-26 13:30 | MM_ITS ---
WS: [id number] BILATERAL 3D TOMOSYNTHESIS DIGITAL SCREENING MAMMOGRAPHY WITH CAD CLINICAL INFORMATION: Z12.31 - Encounter for screening mammogram for malignant ... HISTORY: Screening mammogram. No current complaints. COMPARISON: 2022 TECHNIQUE: Bilateral CC and MLO views. FINDINGS: Scattered fibroglandular densities bilaterally. No suspicious focal mass, asymmetry, calcifications, or architectural distortion. No evidence of malignancy. Incidental punctate calcification RIGHT breas t. MM/MM scr tomosynthesis [id number] IMPRESSION: DENSITY: There are scattered areas of fibroglandular density. BI-RADS: 2 - Benign. FOLLOW UP: 1 Year Follow-up Recommend return to annual screening mammography.
== END 2024-06-26 13:05 | disposition home or self-care (01) ==
LOC: RAD 13:06
PROVIDERS: PCP Family Medicine; Visit Provider Nurse Practitioner Women's Health
DX: Z78.0 Asymptomatic menopausal state (principal); Z12.31 Encounter for screening mammogram for malignant neoplasm of breast; M85.80 Other specified disorders of bone density and structure, unspecified site
CPT/HCPCS: 77063; 77067; 77080

== ENCOUNTER → 2025-02-26 09:51 | Outpatient (BNVA) | payer MEDICARE, SELFPAY | PROVIDERS: PCP Family Medicine; Visit Provider Nurse Practitioner Women's Health | DX: M85.80 Other specified disorders of bone density and structure, unspecified site (principal) | CPT/HCPCS: 82306 ==

== ENCOUNTER → 2025-05-22 13:02 | Outpatient (BNVA) | payer MEDICARE, SELFPAY | PROVIDERS: PCP Family Medicine; Visit Provider Nurse Practitioner Family | DX: L57.8 Other skin changes due to chronic exposure to nonionizing radiation (principal); L81.4 Other melanin hyperpigmentation; L82.1 Other seborrheic keratosis; D18.01 Hemangioma of skin and subcutaneous tissue; I83.93 Asymptomatic varicose veins of bilateral lower extremities; Z80.8 Family history of malignant neoplasm of other organs or systems; L82.0 Inflamed seborrheic keratosis; L53.8 Other specified erythematous conditions; Z78.9 Other specified health status; L29.89 Other pruritus; D48.5 Neoplasm of uncertain behavior of skin | CPT/HCPCS: 11102; 17110; 99213 ==

== ENCOUNTER 2025-06-27 10:43 | Outpatient (CLI) | payer MEDICARE, SELFPAY ==
--- NOTE | 2025-06-27 11:00 | MM_ITS ---
WS: [id number] BILATERAL SCREENING DIGITAL TOMOSYNTHESIS MAMMOGRAM WITH CAD HISTORY: Z12.31 - Encounter for screening mammogram for malignant ... COMPARISON: 06/26/2024, 06/20/2023, 06/17/2022 Bilateral CC and MLO views with tomosynthesis and synthetic mammography submitted. Computer aided detection analyzed. Breast composition: There are scattered areas of fibroglandular density. No suspicious masses, microcalcifications or architectural distortion. Benign calcifications in each breast. MM/MM scr tomosynthesis [id number] IMPRESSION: BI-RADS: 2 - Benign. FOLLOW UP: 1 Year Follow-up
== END 2025-06-27 10:44 | disposition home or self-care (01) ==
LOC: RAD 10:45
PROVIDERS: PCP Family Medicine; Visit Provider Nurse Practitioner Women's Health
DX: Z12.31 Encounter for screening mammogram for malignant neoplasm of breast (principal); R92.323 Mammographic fibroglandular density, bilateral breasts; R92.1 Mammographic calcification found on diagnostic imaging of breast
CPT/HCPCS: 77063; 77067

== ENCOUNTER 2025-07-07 14:58 | Outpatient (RCR) | payer MEDICARE, SELFPAY | END 2025-07-13 23:59 | disposition home or self-care (01) | LOC: SPT 14:58 | PROVIDERS: PCP Family Medicine; Visit Provider Orthopaedic Surgery | DX: M75.41 Impingement syndrome of right shoulder (principal) | CPT/HCPCS: 97161 ==

== ENCOUNTER 2025-07-14 05:00 | Outpatient (RCR) | payer MEDICARE, SELFPAY | END 2025-08-13 23:59 | disposition home or self-care (01) | LOC: SPT 05:00 | PROVIDERS: PCP Family Medicine; Visit Provider Orthopaedic Surgery | DX: M75.41 Impingement syndrome of right shoulder (principal) | CPT/HCPCS: 97110 ==